=== PATIENT | male | born 1955 | race Caucasian/White ===

== ENCOUNTER 2021-01-03 10:20 | Emergency (ER) | payer MEDICARE, OTHER ==
[~2021-01-03] VITALS: Ht 180.3 cm; Wt 84.0 kg
--- NOTE | 2021-01-03 10:44 | ED Upper Extremity ---
General Chief Complaint: Upper Extremity Stated Complaint: RT THUMB NUMBNESS Source: patient History of Present Illness Date Seen by Provider: Jan 03, 2021 Time Seen by Provider: 10:22 Initial Comments 65 yo male presenting with right thumb weakness since last night 01/01. He states that he is right-hand dominant. He has had trouble trying to hold onto things and grasps things with his right hand due to thumb weakness since last night. He denies any new injury or fall but did have continued shoulder pain on the right since having a fall directly on the shoulder 6 weeks ago while playing pickle ball. He denies any numbness or tingling. He has increased pain with lifting his arm. He denies any prior problems with his arm or hand. He denies any other symptoms of vision change, numbness or weakness in any other extremity or area. Allergies and Home Medications Allergies Coded Allergies: No Known Drug Allergies (Unverified , 01/03/21) Patient Home Medication List Home Medication List Reviewed: Yes Review of Systems Constitutional: No chills, No dizziness, No fever EENTM: no symptoms reported Respiratory: no symptoms reported Cardiovascular: no symptoms reported Gastrointestinal: no symptoms reported Genitourinary: no symptoms reported Musculoskeletal: see HPI Skin: no symptoms reported Psychiatric/Neurological: See HPI Past Jmtujhu-Jsjjog-Rrjpjj Hx Past Med/Social Hx: Reviewed Nursing Past Med/Soc Hx Past Medical History Respiratory: No Cardiac: Yes Hypertension Physical Exam Vital Signs Vital Signs - First Documented 01/03/21 10:28 Temp 36.2 Pulse 94 Resp 16 B/P (MAP) 129/98 (108) Pulse Ox 97 O2 Delivery Room Air Capillary Refill : Height, Weight, BMI Height: '" Weight: lbs. oz. kg; BMI Method: General Appearance: WD/WN, no apparent distress HEENT: PERRL/EOMI Neck: non-tender, full range of motion, supple, normal inspection Cardiovascular: normal peripheral pulses, regular rate, rhythm Respiratory: chest non-tender Shoulder: normal ROM; No deformity, No ecchymosis; pain (with abduction past 80 degrees) Elbow/Forearm: normal inspection, non-tender, no evidence of injury, normal ROM Wrist: Yes normal inspection, Yes non-tender, Yes no evidence of injury Hand: no evidence of injury, normal ROM Neurologic/Tendon: normal sensation, normal tendon functions, other (He has mild weakness with moving his right thumb towards his hand/fingers compared to the left side.) Neurologic/Psychiatric: kettle cook II-XII nml as tested, alert, oriented x 3 Skin: normal color, warm/dry Progress/Results/Core Measures Results/Orders My Orders Orders - HARRIETT NAIK MD Shoulder 3 View Right (01/03/21 10:39) Vital Signs/I&O 01/03/21 01/03/21 10:28 11:30 Temp 36.2 36.2 Pulse 94 94 Resp 16 16 B/P (MAP) 129/98 (108) 129/98 (108) Pulse Ox 97 97 O2 Delivery Room Air Progress Progress Note #1: Progress Note Discussed with patient the stroke was unlikely since this was so localized to just his thumb. He could have an issue with the rotator cuff for brachial plexus on his right arm since he was having shoulder issues. He denies any recent injury but with the pain and injury still from 6 weeks ago he was concerned about a fracture in his shoulder. I advised him that a CT of his head would help look from a neurologic standpoint as well as we could look for bony injury of the shoulder but ultimately an MRI would be the way to look at the soft tissues of the shoulder and the nerves. As an MRI is not available here and it is a localized if nothing shows on the initial test he would have to go to a larger facility. Patient wanted to just have x-rays to look for any fracture. He would decide from there for any further testing or treatment. Progress Note #2: Progress Note The x-rays did not show any acute fracture or dislocation. He has some mild degenerative changes. Discussed results with the patient and again reviewed that an MRI or seeing orthopedics would be the next step. Also counseled that could try using NSAIDs or steroids to see if that would help. Patient opted to try taking NSAIDs and alternate ice and heat initially. If symptoms worsen or progress to other areas will return or seek care to look for an MRI for rotator cuff or brachial plexus nerve issue. Diagnostic Imaging Diagonstic Imaging: Xray Plain Films/CT/US/NM/MRI: other (right shoulder) Comments NAME: INDIGONORMAN REC#: [id number] PT STATUS: REG ER : 1955 PHYSICIAN: HARRIETT NAIK MD ADMIT DATE: 01/03/21/ER FS Draft Date of Exam:01/03/21 SHOULDER 3 VIEW RIGHT HISTORY: Pain in the right shoulder after fall 6 weeks ago COMPARISON: None TECHNIQUE: 3 views of the right shoulder FINDINGS: No acute fracture or dislocation is seen in the right shoulder. Alignment appears normal. There are moderate degenerative changes in the right acromioclavicular joint and mild in the glenohumeral joint. IMPRESSION: 1. Degenerative changes in the right shoulder with no acute osseous abnormality seen. Dictated on workstation # [id number] Dict: 01/03/21 1103 Trans: 01/03/21 [facility]6 [place] [id number] Interpreted by: JILLIAN CHAMBERS MD Electronically signed by: Reviewed: Reviewed by Me (and radiology report) Departure Impression Primary Impression: Thumb weakness Additional Impressions: Right shoulder strain Qualified Codes: S46.911A - Strain of unspecified muscle, fascia and tendon at shoulder and upper arm level, right arm, initial encounter Right shoulder pain Qualified Codes: M25.511 - Pain in right shoulder; G89.29 - Other chronic pain Disposition: 01 HOME, SELF-CARE Condition: Stable Departure-Patient Inst. Decision time for Depature: 11:23 Referrals: NO,LOCAL PHYSICIAN (PCP) Primary Care Physician KYLE FALK MD, MICHAEL P MD [facility] Patient Instructions: Shoulder Pain ED, Weakness ED Add. Discharge Instructions: Try using Aleve (Naproxen) for inflammation and pain. If having worsening weakness/pain then get checked sooner or if not improving over next few days then check with [facility] by calling [phone] or call the Orthopedics clinic for follow up. Dr. Aj and Nurse Practitioner Leonel Morales could be scheduled by calling [phone] All discharge instructions reviewed with patient and/or family. Voiced understanding. HARRIETT NAIK MD Jan 03, 2021 10:44
[2021-01-03] MEDS ORDERED: OLMESARTAN (10:56)
--- NOTE | 2021-01-03 11:06 | Diagnostic Imaging Report ---
HISTORY: Pain in the right shoulder after fall 6 weeks ago COMPARISON: None TECHNIQUE: 3 views of the right shoulder FINDINGS: No acute fracture or dislocation is seen in the right shoulder. Alignment appears normal. There are moderate degenerative changes in the right acromioclavicular joint and mild in the glenohumeral joint. IMPRESSION: 1. Degenerative changes in the right shoulder with no acute osseous abnormality seen. Dictated by: Dictated on workstation # [id number]
[2021-01-03 11:30] VITALS: BP 129/98
== END 2021-01-03 11:30 | disposition home or self-care (01) ==
LOC: ER FS 10:27
DX: S46.911A Strain of unspecified muscle, fascia and tendon at shoulder and upper arm level, right arm, initial encounter (principal); R53.1 Weakness; I10 Essential (primary) hypertension; W09.8XXA Fall on or from other playground equipment, initial encounter; Y93.73 Activity, racquet and hand sports
CPT/HCPCS: 73030

== ENCOUNTER 2021-01-20 21:48 | Observation (INO) | payer MEDICARE ==
[~2021-01-20] VITALS: Ht 185.5 cm; Wt 86.9 kg
[~2021-01-20 21:48] MED LIST: OLMESARTAN
--- NOTE | 2021-01-20 22:06 | ED Neurological Problem ---
General Stated Complaint: RIGHT SIDE WEAKNESS Source: patient Exam Limitations: no limitations History of Present Illness Date Seen by Provider: January 20, 2021 Time Seen by Provider: 21:51 Initial Comments Patient to the ER by private conveyance with his significant other and chief complaint that he has right-sided weakness, difficulty speaking, right upper and lower extremity weakness and facial droop. He woke up with this at noon. Last known well time was 11:00 last night when he went to bed. 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 He has a strong family history of stroke. He is not diabetic. Several weeks ago he fell and had a accident while playing pickle ball with outstretched right arm and has had some pain and pinched nerve in his right arm and shoulder. Allergies and Home Medications Allergies Coded Allergies: No Known Drug Allergies (Unverified , 01/03/21) Patient Home Medication List Home Medication List Reviewed: Yes Review of Systems Review of Systems Constitutional: No chills, No diaphoresis, No fever Eyes: Denies Blindness, Denies Blurred Vision, Denies Drainage Ears, Nose, Mouth, Throat: denies ear pain, denies ear discharge Respiratory: No cough, No short of breath Cardiovascular: No edema, No palpitations Gastrointestinal: No abdominal pain, No nausea Genitourinary: No discharge, No dysuria Musculoskeletal: No back pain, No joint pain Psychiatric/Neurological: See HPI All Other Systems Reviewed Negative Unless Noted: Yes Past Heiozht-Oyvnxa-Gkbkee Hx Patient Social History Alcohol Use: Occasionally Uses Number of Drinks Today: 0 Drug of Choice: Denies Smoking Status: Never a Smoker Recent Hopitalizations: No Seasonal Allergies Seasonal Allergies: No Past Medical History Surgeries: Yes (Exploratory Lap, bilat inguinal hernias) Respiratory: No Cardiac: Yes Hypertension Neurological: No Genitourinary: No Gastrointestinal: No Musculoskeletal: No Endocrine: No HEENT: No Cancer: No Psychosocial: No Integumentary: No Blood Disorders: No Physical Exam Vital Signs Vital Signs - First Documented 01/20/21 21:52 Temp 36.6 Capillary Refill : Height, Weight, BMI Height: '" Weight: lbs. oz. kg; 25.00 BMI Method: General Appearance: WD/WN, mild distress HEENT: PERRL/EOMI, pharynx normal Neck: full range of motion, normal inspection Respiratory: normal breath sounds, no respiratory distress, no accessory muscle use Cardiovascular: normal peripheral pulses, regular rate, rhythm Peripheral Pulses: 2+ Dorsalis Pedis (R), 2+ Left Dors-Pedis (L) Extremities: normal range of motion, non-tender, normal inspection, normal capillary refill Neurologic/Psychiatric: alert, oriented x 3 Crainal Nerves: normal hearing, PERRL, abnormal speech, facial asymmetry, facial droop, facial paresthesias, facial weakness Motor/Sensory: pronator drift (R) (Upper and lower extremity), sensory deficit (Right face and right upper extremity decreased sensation) Skin: normal color, warm/dry Stroke Onset of Symptoms Date of Onset of Symptoms: January 19, 2021 Time of Symptom Onset: 23:00 Onset of Symptoms: Yes Symptoms onset unknown: Yes NIH Stroke Scale Assessment Select: Initial Level of Consciousness: 0=Alert (0), Level of Consciousness- Questions: 0=Answers both month/age (0), LOC Commands: 0=Performs both tasks (0), Gaze: Normal (0), Visual Larson: 0=No visual loss (0), Facial Movement (Facial Paresis): 2=Partial paralysis (2), Motor Function-Arms Right: 1=Drift (1), Motor Function-Arms Left: 0=No drift (0), Motor Function-Legs Right: 1=Drift (1), Motor Function-Legs Left: 0=No drift (0), Limb Ataxia: 0=Absent (0), Sensory: 1=Mild to Moderate loss Face and right upper extremity decreased sensation (1), Best Language: 0=No aphasia (0), Dysarthria: 1=Mild to moderate loss (1), Extinction & Inattention: 0=No abnormality (0), Total: 6 Stroke Thrombolytic Exclusion Age 18 or Over: No Acute intenal hemorrhage: No History of CVA: No Uncontrolled Coagulation Defec: No Intracranial Hemorrhage: No Severe Hypertension: No GI or Bleed: No Subarachnoid Hemorrhage: No Intracranial Neoplasm/Aneurysm: No Oral Anticoagulants: No Surgery or Trauma: No Puncture of Non-Compressible V: No Recent CPR: No Diabetic Hemorrhagic Retinopat: No Organ Biopsy: No Recent Obstetric Delivery: No Glucose: No (Reads high) Significant Hepatic Dysfunctio: No NIH Stoke Scale >22: No Bacterial Endocarditis: No Pericarditis: No Improving Symptoms: No Platelets: No TPA Contraindication: Yes (Outside the window) IV - TPa Received IV - TPa Procedure Performed?: No (Last known well time 23 hours ago.) Progress/Results/Core Measures Results/Orders Lab Results Laboratory Tests Test 01/20/21 21:57 01/20/21 22:15 Range/Units White Blood Count 8.3 4.3-11.0 10^3/uL Red Blood Count 5.65 H 4.30-5.52 10^6/uL Hemoglobin 16.7 13.3-17.7 g/dL Hematocrit 47 40-54 % Mean Corpuscular Volume 84 80-99 fL Mean Corpuscular Hemoglobin 30 25-34 pg Mean Corpuscular Hemoglobin Concent 35 32-36 g/dL Red Cell Distribution Width 12.1 10.0-14.5 % Platelet Count 281 130-400 10^3/uL Mean Platelet Volume 12.1 9.0-12.2 fL Immature Granulocyte % (Auto) 0 % Neutrophils (%) (Auto) 50 42-75 % Lymphocytes (%) (Auto) 40 12-44 % Monocytes (%) (Auto) 6 0-12 % Eosinophils (%) (Auto) 3 0-10 % Basophils (%) (Auto) 1 0-10 % Neutrophils # (Auto) 4.2 1.8-7.8 10^3/uL Lymphocytes # (Auto) 3.3 1.0-4.0 10^3/uL Monocytes # (Auto) 0.5 0.0-1.0 10^3/uL Eosinophils # (Auto) 0.3 0.0-0.3 10^3/uL Basophils # (Auto) 0.1 0.0-0.1 10^3/uL Immature Granulocyte # (Auto) 0.0 0.0-0.1 10^3/uL Prothrombin Time 14.7 12.2-14.7 SEC INR Comment 1.1 0.8-1.4 Activated Partial Thromboplast Time 29 24-35 SEC D-Dimer 0.05 0.00-0.49 UG/ML Sodium Level 130 L 135-145 MMOL/L Potassium Level 3.4 L 3.6-5.0 MMOL/L Chloride Level 86 L 98-107 MMOL/L Carbon Dioxide Level 24 21-32 MMOL/L Anion Gap 20 H 5-14 MMOL/L Blood Urea Nitrogen 12 7-18 MG/DL Creatinine 1.85 H 0.60-1.30 MG/DL Estimat Glomerular Filtration Rate 37 BUN/Creatinine Ratio 6 Glucose Level 653 *H 70-105 MG/DL Calcium Level 9.0 8.5-10.1 MG/DL Corrected Calcium 8.9 8.5-10.1 MG/DL Total Bilirubin 0.8 0.1-1.0 MG/DL Aspartate Amino Transf (AST/SGOT) 17 5-34 U/L Alanine Aminotransferase (ALT/SGPT) 27 0-55 U/L Alkaline Phosphatase 74 40-136 U/L Troponin I < 0.028 <0.028 NG/ML Total Protein 7.8 6.4-8.2 GM/DL Albumin 4.1 3.2-4.5 GM/DL Urine Color YELLOW Urine Clarity CLEAR Urine pH 6.0 5-9 Urine Specific [place] <=1.005 1.016-1.022 Urine Protein NEGATIVE NEGATIVE Urine Glucose (UA) 3+ H NEGATIVE Urine Ketones NEGATIVE NEGATIVE Urine Nitrite NEGATIVE NEGATIVE Urine Bilirubin NEGATIVE NEGATIVE Urine Urobilinogen 1.0 < = 1.0 MG/DL Urine Leukocyte Esterase NEGATIVE NEGATIVE Urine RBC (Auto) NEGATIVE NEGATIVE Urine RBC NONE /HPF Urine WBC RARE /HPF Urine Squamous Epithelial Cells NONE /HPF Urine Renal Epithelial Cells NONE /HPF Urine Crystals NONE /LPF Urine Bacteria NEGATIVE /HPF Urine Casts NONE /LPF Urine Mucus NEGATIVE /LPF Urine Culture Indicated NO My Orders Orders - HENRRY TRIPATHI Cbc With Automated Diff (01/20/21 21:59) Protime With Inr (01/20/21 21:59) Partial Thromboplastin Time (01/20/21 21:59) Comprehensive Metabolic Panel (01/20/21 21:59) Fibrin Degradation Products (01/20/21 21:59) Troponin I (01/20/21 21:59) Ua Culture If Indicated (01/20/21 21:59) Chest 1 View, Ap/Pa Only (01/20/21 21:59) Ekg Tracing (01/20/21 21:59) Nothing By Mouth (01/21/21 Breakfast) Accucheck Stat ONCE (01/20/21 21:59) Ed Iv/Invasive Line Start (01/20/21 21:59) Ed Iv/Invasive Line Start (01/20/21 21:59) Vital Signs Stroke Patient Q15M (01/20/21 21:59) O2 (01/20/21 21:59) Intake & Output 06,14,22 (01/20/21 21:59) Monitor-Rhythm Ecg Trace Only (01/20/21 21:59) Dysphagia Screening Tool (01/20/21 21:59) Lipid Panel (01/21/21 06:00) Ct Angio Head/Neck (01/20/21 21:59) Ed Iv/Invasive Line Start (01/20/21 22:45) Ns Iv 1000 Ml (Sodium Chloride 0.9%) (01/20/21 22:45) Iohexol Injection (Omnipaque 350 Mg/Ml 1 (01/20/21 23:00) Received Contrast (Hold Metformin- Contr (01/20/21 23:00) Ns (Ivpb) (Sodium Chloride 0.9% Ivpb Bag (01/20/21 23:00) Potassium Cl 10meq/50ml Ivpb (Kcl 10 Meq (01/20/21 23:15) Insulin (Regular) Human (Novolin R (Per (01/20/21 23:15) Medications Given in ED Current Medications Medications Dose Ordered Sig/Roger Route Start Time Stop Time Status Last Admin Dose Admin Insulin Human Regular 5 unit ONCE ONCE SC 01/20/21 23:15 01/20/21 23:16 DC 01/20/21 23:20 5 UNIT Iohexol 75 ml ONCE ONCE IV 01/20/21 23:00 01/20/21 23:01 DC 01/20/21 22:52 75 ML Potassium Chloride 50 ml @ 50 mls/hr ONCE ONCE IV 01/20/21 23:15 01/21/21 00:14 DC 01/20/21 23:20 50 MLS/HR Sodium Chloride 100 ml ONCE ONCE IV 01/20/21 23:00 01/20/21 23:01 DC 01/20/21 22:52 80 ML Vital Signs/I&O 01/20/21 21:52 Temp 36.6 B/P (MAP) Progress Progress Note #1: Time: 22:02 Progress Note Outside the window for TPA. Plan to get CT angiogram and CT of the head. Bedside glucometer reads high. Progress Note #2: Time: 23:47 Progress Note Repeat NIH 6, unchanged. 2 L of saline of been ordered as well as potassium and 5 units of regular insulin. Progress Note #3: Time: 00:53 Progress Note Patient is having some difficulty controlling his right arm having some jerking movement which we suspect is related to the hyperglycemia. He takes alprazolam 1 mg daily at night. We have suggested some Ativan half a milligram IV and he accepted this plan. Initial ECG Impression Date: January 20, 2021 Initial ECG Impression Time: 22:04 Initial ECG Rate: 94 Initial ECG Rhythm: Normal Sinus Initial ECG Intervals: QT (506) Initial ECG Impression: Normal Initial ECG Comparisson: No Previous ECG Available Comment sinus Rhythm with prolonged QT interval and no clinically relevant ST changes. Diagnostic Imaging Diagonstic Imaging: Xray Plain Films/CT/US/NM/MRI: chest Comments No acute cardiopulmonary process on 1 view chest x-ray Reviewed: Reviewed by Me Diagonstic Imaging: CT Plain Films/CT/US/NM/MRI: head Comments No intracranial hemorrhage, evidence of large territorial infarction. Mild parenchymal volume loss with chronic microvascular ischemic changes. No large vessel occlusion, aneurysm or hemodynamically significant stenosis Reviewed: Reviewed [place] Study, Reviewed by Me Diagonstic Imaging: CT Plain Films/CT/US/NM/MRI: head (Head and neck) Comments No dissection, pseudoaneurysm or hemodynamically significant stenosis of the carotid or vertebral arteries. Mild esophageal wall thickening. This could be seen with esophagitis in the appropriate clinical scenario. Reviewed: Reviewed [place] Study, Reviewed by Me Consults : Consults Notes Dr Lazaro: Stroke neurologist on-call at [facility] recommends we should consider stroke versus hyperglycemia. We should admit him, address the hyperglycemia and consider getting MRI in the morning. She recommends antiplatelets and IV fluids. Blood pressure is down now to 103/71 so we will start a second liter of fluids. Departure Impression Primary Impression: Hyperglycemia Additional Impression: Acute right-sided weakness Disposition: ADMITTED INPATIENT Condition: Stable Admissions Decision to Admit Reason: Admit from ER (General) Decision to Admit/Date: January 20, 2021 Time/Decision to Admit Time: 23:10 Departure-Patient Inst. Referrals: NO,LOCAL PHYSICIAN (PCP/Family) Primary Care Physician HENRRY TRIPATHI January 20, 2021 22:06
[2021-01-20 22:14] LABS: BASOPHILS # (AUTO) 0.1 10^3/uL (0.0-0.1); BASOPHILS % (AUTO) 1 % (0-10); EOSINOPHILS # (AUTO) 0.3 10^3/uL (0.0-0.3); EOSINOPHILS % (AUTO) 3 % (0-10); HEMATOCRIT 47 % (40-54); HEMOGLOBIN 16.7 g/dL (13.3-17.7); LYMPHOCYTES # (AUTO) 3.3 10^3/uL (1.0-4.0); LYMPHOCYTES % (AUTO) 40 % (12-44); MEAN CORPUSCULAR HEMOGLOBIN 30 pg (25-34); MEAN CORPUSCULAR HGB CONC 35 g/dL (32-36); MEAN CORPUSCULAR VOLUME 84 fL (80-99); MEAN PLATELET VOLUME 12.1 fL (9.0-12.2); MONOCYTES # (AUTO) 0.5 10^3/uL (0.0-1.0); MONOCYTES % (AUTO) 6 % (0-12); NEUTROPHILS # (AUTO) 4.2 10^3/uL (1.8-7.8); NEUTROPHILS % (AUTO) 50 % (42-75); PLATELET COUNT 281 10^3/uL (130-400); WHITE BLOOD COUNT 8.3 10^3/uL (4.3-11.0)
[2021-01-20 22:22] LABS: BILIRUBIN,URINE NEGATIVE (NEGATIVE); CLARITY,URINE CLEAR; COLOR,URINE YELLOW; GLUCOSE, URINE (UA) 3+ (NEGATIVE); KETONES,URINE NEGATIVE (NEGATIVE); LEUKOCYTE ESTERASE ,URINE NEGATIVE (NEGATIVE); NITRITE,URINE NEGATIVE (NEGATIVE); PROTEIN,URINE NEGATIVE (NEGATIVE)
[2021-01-20 22:25] LABS: ALBUMIN 4.1 GM/DL (3.2-4.5); CHLORIDE 86 MMOL/L (98-107); POTASSIUM 3.4 MMOL/L (3.6-5.0); SODIUM 130 MMOL/L (135-145)
[2021-01-20 22:28] LABS: TOTAL PROTEIN 7.8 GM/DL (6.4-8.2)
[2021-01-20 22:29] LABS: BACTERIA,URINE NEGATIVE /HPF; WBC,URINE RARE /HPF
[2021-01-20 22:29] LABS: CARBON DIOXIDE 24 MMOL/L (21-32)
[2021-01-20 22:30] LABS: BILIRUBIN,TOTAL 0.8 MG/DL (0.1-1.0)
[2021-01-20 22:31] LABS: ALKALINE PHOSPHATASE 74 U/L (40-136); CREATININE SERUM 1.85 MG/DL (0.60-1.30); GFR ESTIMATED 37
[2021-01-20 22:32] LABS: BUN/CREATININE RATIO 6
[2021-01-20 22:34] LABS: ALANINE AMINOTRANSFERASE 27 U/L (0-55); FIBRIN DEGRADATION PRODUCTS 0.05 UG/ML (0.00-0.49); GLUCOSE 653 MG/DL (70-105); INR 1.1 (0.8-1.4); PROTHROMBIN TIME PATIENT 14.7 SEC (12.2-14.7)
[2021-01-20] MEDS ORDERED: NS IV 1000 ML 1,000 ML IV SCH (22:45)
[2021-01-20] MEDS ORDERED: IOHEXOL 350 MG/ML 100 ML (OMNIPAQUE 350) VIAL IV ONE (23:00)
[2021-01-20] MEDS ORDERED: HOLD METFORMIN - RECEIVED CONTRAST 20 ML VIAL IV SCH (23:00)
[2021-01-20] MEDS ORDERED: NS 100 ML (IVPB) BAG IV ONE (23:00)
[2021-01-20] MEDS ORDERED: POTASSIUM CL 10MEQ/50ML IVPB 50 ML IV ONE (23:15)
[2021-01-20] MEDS ORDERED: inSUlin (REGULAR) HUMAN 1 UNIT/0.01 ML (CHARGE PER UNIT) SC ONE (23:15)
[2021-01-21] MEDS ORDERED: LORazepam INJ 2 MG/ML (ATIVAN) VIAL ONE (00:47)
[2021-01-21 00:59] VITALS: BP 78/58
[2021-01-21] MEDS ORDERED: LORazepam INJ 2 MG/ML (ATIVAN) VIAL IVP ONE (01:00)
[2021-01-21] MEDS ORDERED: 1/2 NS IV SOLUTION 1,000 ML IV ONE (01:19)
[2021-01-21] MEDS ORDERED: ACETAMINOPHEN 325 MG TABLET PO PRN (02:00)
[2021-01-21] MEDS: POTASSIUM CL 10MEQ/50ML IVPB 50 ML IV SCH ×8 (02:00→23:32)
[2021-01-21] MEDS: 1/2 NS IV SOLUTION 1,000 ML IV SCH ×6 (02:00→22:09)
[2021-01-21 03:31] LABS: BASOPHILS # (AUTO) 0.1 10^3/uL (0.0-0.1); BASOPHILS % (AUTO) 1 % (0-10); EOSINOPHILS # (AUTO) 0.3 10^3/uL (0.0-0.3); EOSINOPHILS % (AUTO) 4 % (0-10); HEMATOCRIT 45 % (40-54); LYMPHOCYTES # (AUTO) 2.8 10^3/uL (1.0-4.0); LYMPHOCYTES % (AUTO) 40 % (12-44); MEAN CORPUSCULAR HEMOGLOBIN 30 pg (25-34); MEAN CORPUSCULAR HGB CONC 36 g/dL (32-36); MEAN CORPUSCULAR VOLUME 84 fL (80-99); MEAN PLATELET VOLUME 11.8 fL (9.0-12.2); MONOCYTES # (AUTO) 0.4 10^3/uL (0.0-1.0); MONOCYTES % (AUTO) 6 % (0-12); NEUTROPHILS # (AUTO) 3.5 10^3/uL (1.8-7.8); NEUTROPHILS % (AUTO) 50 % (42-75); PLATELET COUNT 221 10^3/uL (130-400)
[2021-01-21 03:45] LABS: POTASSIUM 3.1 MMOL/L (3.6-5.0)
[2021-01-21 03:47] LABS: CALCIUM 8.4 MG/DL (8.5-10.1)
[2021-01-21 03:51] LABS: PHOSPHORUS 2.4 MG/DL (2.3-4.7)
[2021-01-21 03:52] LABS: CREATININE SERUM 1.36 MG/DL (0.60-1.30)
[2021-01-21 03:54] LABS: MAGNESIUM 2.1 MG/DL (1.6-2.4)
[2021-01-21] MEDS: D5 1/2 NS 1000 ML IV SOLUTION 1,000 ML IV SCH ×5 (04:02→21:14)
[2021-01-21] MEDS ORDERED: KCL 20 MEQ TAB (K-DUR) PO SCH ×2 (06:00)
[2021-01-21] MEDS ORDERED: POTASSIUM CL 10MEQ/50ML IVPB 50 ML IV SCH ×2 (06:00)
[2021-01-21] MEDS ORDERED: MAGNESIUM 1 GM/100 ML IVPB 100 ML IV SCH ×2 (06:00)
--- NOTE | 2021-01-21 06:15 | Diagnostic Imaging Report ---
EXAMINATION: Chest 1 view HISTORY: Right-sided weakness. Concern for stroke. COMPARISON: None available. FINDINGS: The lung volumes are normal. No focal consolidation is seen. No large pleural effusion or pneumothorax is seen. The cardiomediastinal silhouette is normal in size and contour. No acute osseous abnormality is seen. IMPRESSION: 1. No acute pleuroparenchymal process. Dictated by: Dictated on workstation # [id number]
--- NOTE | 2021-01-21 06:45 | Diagnostic Imaging Report ---
PROCEDURE: CT angiography of the head and CT angiography of the neck with and without contrast. TECHNIQUE: Contiguous noncontrast images were obtained from the skull base through the vertex. After intravenous contrast administration, helical CT angiography of the neck was performed. Source data was reformatted into 3D MIP projections. Delayed post contrast acquisition was also obtained. Auto Exposure Controls were utilized during the CT exam to meet ALARA standards for radiation dose reduction. INDICATION: Right-sided weakness. Concern for stroke. Comparison: None. FINDINGS: CTA Neck: The visualized portions of the aortic arch demonstrate no evidence of aneurysm or dissection. There is conventional branching pattern of the great vessels of the aorta. The brachiocephalic artery is normal in course and caliber. The right and left common carotid origins are unremarkable. The origin of the left subclavian artery is patent. The common carotid arteries and internal carotid arteries demonstrate a normal course and caliber without evidence of stenosis or dissection. The external carotid arteries are patent and unremarkable. The vertebral arteries are codominant. The origin of the right vertebral artery is seen and is unremarkable. The origin of the left vertebral artery is seen and is unremarkable. There is no focal stenosis seen within the neck. There is no dissection. The vertebral arteries are well visualized to up to the level of the basilar artery. The osseous structures of the cervical spine are unremarkable. Included views through the lung apices demonstrate no focal consolidation. CTA brain: The intracranial portions of the bilateral ICA have a normal appearance without evidence of stenosis or aneurysm. No stenosis is seen in the bilateral anterior, middle, and posterior cerebral arteries. No evidence of aneurysm the [place]. In the posterior circulation, both of the vertebral arteries demonstrate normal opacification. The vertebral arteries are codominant. Both the right and left PICA arteries are identified. The basilar artery is normal in course and caliber. The terminal branch vessels including the superior cerebellar arteries unremarkable. CT head: No large acute territorial ischemia, mass, or hemorrhage. No midline shift or mass effect. The ventricles, cortical sulci, and basilar cisterns are patent and unremarkable. The calvarium is intact. Mild mucosal thickening is seen in the bilateral maxillary sinuses. The mastoid air cells are clear. IMPRESSION: 1. No stenosis or aneurysm in the [place]. No evidence of large vessel occlusion. 2. No stenosis or dissection the bilateral carotid and vertebral arteries. 3. No large acute territorial ischemia, mass, or hemorrhage. If symptoms persist, recommend MRI of the brain to further evaluate. Agree with overnight report. Dictated by: Dictated on workstation # [id number]
[2021-01-21] MEDS: DOCUSATE SODIUM 100 MG (COLACE) CAP PO SCH ×2 (08:17→20:03)
[2021-01-21] MEDS: ASPIRIN E.C. 325 MG (ECOTRIN) TABLET PO SCH (08:17)
--- NOTE | 2021-01-21 09:10 | History & Physical-Hospitalist ---
History of Present Illness HPI/Chief Complaint Pt is a 65yoCM with a PMH of HIV and HTN who presented to the ER due to right sided weakness. His last known well was 11pm last night and he awoke with this symptoms. He fell playing pickleball a couple of months ago and has had some right arm pain since so thought it was that but he also developed slurred speech and right lower extremity weakness. His NIH was [address] head was negative for ICH and CTA was then done which showed no large vessel occlusions. [facility] stroke neurology was consulted and recommended MRI and DAPT. He was admitted for further work up. This morning he reports feeling better. Speech is better and he has no lower extremity weakness. His right arm is still quite weak and he complains of paresthesias in it with occasional spasticity. He has no known history of DM but his blood sugar was 653 on arrival. He also reports his CD4 count was in the 800s on last check and his viral load was undetectable. Source: patient Date Seen 01/21/21 Time Seen by a Provider: 08:30 Attending Physician Violeta Griffin MD PCP No,Local Physician Referring Physician Date of Admission January 20, 2021 at 23:30 Home Medications & Allergies Home Medications Reviewed patient Home Medication Reconciliation performed by pharmacy medication reconciliations inorganic chemical technician and/or nursing. Patients Allergies have been reviewed. Allergies Allergies Coded Allergies No Known Drug Allergies (Unverified01/03/21) Patient Social History Marrital Status: single Tobacco Use?: No Smoking Status: Never a Smoker Substance use?: No Alcohol Use?: No Pt stated abuse/neglect: No Immunizations Up To Date Influenza Vaccine Up-to-Date: Yes; Up-to-Date First/Initial COVID19 Vaccinat: 01/03 Second COVID19 Vaccination [place]: 01/03 Current Status Do you have an Advance Directi: No Communicates: Verbally Primary Language: Malaysian Preferred Spoken Language: Malaysian Is interpretation needed?: No Past Medical History HIV positive, HTN Family Medical History Family Hx: Stroke, Heart disease Review of Systems Constitutional: No chills, No fever EENTM: no symptoms reported Respiratory: No cough, No orthopnea, No short of breath Cardiovascular: No chest pain, No edema, No palpitations Gastrointestinal: No abdominal pain, No constipation, No diarrhea, No nausea, No vomiting Genitourinary: no symptoms reported Musculoskeletal: see HPI Skin: no symptoms reported Psychiatric/Neurological: See HPI Physical Exam Physical Exam Vital Signs Vital Signs - First Documented 01/20/21 01/21/21 01/21/21 21:52 00:59 01:09 Temp 36.6 Pulse 76 Resp 20 B/P (MAP) 78/58 Pulse Ox 95 O2 Delivery Room Air Capillary Refill : Less Than 3 Seconds Height, Weight, BMI Height: '" Weight: lbs. oz. kg; 23.53 BMI Method: General Appearance: No Apparent Distress, WD/WN HEENT: PERRL/EOMI, Moist Mucous Membranes Neck: Normal Inspection, Supple Respiratory: Lungs Clear, No Accessory Muscle Use, No Respiratory Distress Cardiovascular: Regular Rate, Rhythm, No JVD, No Murmur Gastrointestinal: Normal Bowel Sounds, Non Tender, Soft Extremity: Normal Capillary Refill, No Calf Tenderness, No Pedal Edema Neurologic/Psychiatric: Alert, Oriented x3, Normal Mood/Affect; No Aphasia, No Facial Droop; Motor Weakness (right upper extremity hemstitcher strength 2/5, sensation intact, all other extremities 5/5); No Sensory Deficit Results Results/Procedures Labs Laboratory Tests 01/20/21 21:57 01/21/21 03:07 01/21/21 08:44 Patient resulted labs reviewed. Imaging: Reviewed Imaging Report Imaging [facility], [place] NAME: NORMAN SOOD [facility] REC#: [id number] PT STATUS: ADM Rajni : 1955 PHYSICIAN: HENRRY TRIPATHI MD ADMIT DATE: 01/20/21/ICU Signed Date of Exam:01/20/21 CT ANGIO HEAD/NECK PROCEDURE: CT angiography of the head and CT angiography of the neck with and without contrast. TECHNIQUE: Contiguous noncontrast images were obtained from the skull base through the vertex. After intravenous contrast administration, helical CT angiography of the neck was performed. Source data was reformatted into 3D MIP projections. Delayed post contrast acquisition was also obtained. Auto Exposure Controls were utilized during the CT exam to meet ALARA standards for radiation dose reduction. INDICATION: Right-sided weakness. Concern for stroke. Comparison: None. FINDINGS: CTA Neck: The visualized portions of the aortic arch demonstrate no evidence of aneurysm or dissection. There is conventional branching pattern of the great vessels of the aorta. The brachiocephalic artery is normal in course and caliber. The right and left common carotid origins are unremarkable. The origin of the left subclavian artery is patent. The common carotid arteries and internal carotid arteries demonstrate a normal course and caliber without evidence of stenosis or dissection. The external carotid arteries are patent and unremarkable. The vertebral arteries are codominant. The origin of the right vertebral artery is seen and is unremarkable. The origin of the left vertebral artery is seen and is unremarkable. There is no focal stenosis seen within the neck. There is no dissection. The vertebral arteries are well visualized to up to the level of the basilar artery. The osseous structures of the cervical spine are unremarkable. Included views through the lung apices demonstrate no focal consolidation. CTA brain: The intracranial portions of the bilateral ICA have a normal appearance without evidence of stenosis or aneurysm. No stenosis is seen in the bilateral anterior, middle, and posterior cerebral arteries. No evidence of aneurysm the [place]. In the posterior circulation, both of the vertebral arteries demonstrate normal opacification. The vertebral arteries are codominant. Both the right and left PICA arteries are identified. The basilar artery is normal in course and caliber. The terminal branch vessels including the superior cerebellar arteries unremarkable. CT head: No large acute territorial ischemia, mass, or hemorrhage. No midline shift or mass effect. The ventricles, cortical sulci, and basilar cisterns are patent and unremarkable. The calvarium is intact. Mild mucosal thickening is seen in the bilateral maxillary sinuses. The mastoid air cells are clear. IMPRESSION: 1. No stenosis or aneurysm in the [place]. No evidence of large vessel occlusion. 2. No stenosis or dissection the bilateral carotid and vertebral arteries. 3. No large acute territorial ischemia, mass, or hemorrhage. If symptoms persist, recommend MRI of the brain to further evaluate. Agree with overnight report. Dictated by: Dictated on workstation # [id number] Dict: 01/21/2138 Trans: 01/21/21648 CV [id number] Interpreted by: FLORINDA MACEDO DO Electronically signed by: FLORINDA MACEDO DO 01/21/21648 [facility], [place] NAME: NOR[facility] SOOD [facility] REC#: [id number] PT STATUS: ADM Rajni : 1955 PHYSICIAN: HENRRY TRIPATHI MD ADMIT DATE: 01/20/21/ICU Signed Date of Exam:01/20/21 CHEST 1 VIEW, AP/PA ONLY EXAMINATION: Chest 1 view HISTORY: Right-sided weakness. Concern for stroke. COMPARISON: None available. FINDINGS: The lung volumes are normal. No focal consolidation is seen. No large pleural effusion or pneumothorax is seen. The cardiomediastinal silhouette is normal in size and contour. No acute osseous abnormality is seen. IMPRESSION: 1. No acute pleuroparenchymal process. Dictated by: Dictated on workstation # [id number] Dict: 01/21/21612 Trans: 01/21/21616 CARMEN [id number] Interpreted by: FLORINDA MACEDO DO Electronically signed by: FLORINDA MACEDO DO 01/21/21 0617 Assessment/Plan Admission Diagnosis Stroke like symptoms Admission Status: Inpatient Order (span 2 midnights) Reason for Inpatient Admission: see below Assessment and Plan Stroke like symptoms Right sided weakness Outside of window for TPA on arrival PT/OT Continue ASA, statin Monitor on telemetry Echo ordered MRI in AM Consider IRU given spasticity in arm and high likelihood for physician oversight with rehab, pt is also right handed so suffering significant new debility with right arm impact Newly diagnosed Type II DM BS 653 on arrival Currently on insulin gtt Will get a1c Hopeful to titrate off this afternoon to bolus insulin HTN Normally has high Bp Hold home meds for hypotension Echo ordered HIV+ Reports good control on home regimen Resume anti retrovirals when med rec done CD4 and viral load ordered as he is due for it DVT ppx: Lovenox Clinical Quality Measures Stroke: Date of last known well: January 20, 2021 Time of last known well: 23:00 Symptoms onset unknown: Yes VIOLETA GRIFFIN MD January 21, 2021 09:10
[2021-01-21 09:16] LABS: BUN/CREATININE RATIO 9; CALCIUM 7.7 MG/DL (8.5-10.1); CARBON DIOXIDE 28 MMOL/L (21-32); CHLORIDE 96 MMOL/L (98-107); CREATININE SERUM 1.16 MG/DL (0.60-1.30); GFR ESTIMATED > 60; GLUCOSE 200 MG/DL (70-105); POTASSIUM 3.2 MMOL/L (3.6-5.0); SODIUM 135 MMOL/L (135-145)
[2021-01-21] MEDS ORDERED: DARU1TAB PO (09:29)
[2021-01-21] MEDS ORDERED: DOLU10TA PO (09:30)
[2021-01-21 15:08] LABS: CALCIUM 7.5 MG/DL (8.5-10.1); CREATININE SERUM 1.4 MG/DL (0.60-1.30)
[2021-01-21] MEDS: KCL 20 MEQ TAB (K-DUR) PO SCH ×3 (16:09→20:03)
[2021-01-22 01:04] LABS: CREATININE SERUM 1.22 MG/DL (0.60-1.30)
[2021-01-22] MEDS: D5 1/2 NS 1000 ML IV SOLUTION 1,000 ML IV SCH (01:18)
[2021-01-22] MEDS: 1/2 NS IV SOLUTION 1,000 ML IV SCH (02:46)
[2021-01-22 03:09] LABS: BASOPHILS # (AUTO) 0.1 10^3/uL (0.0-0.1); BASOPHILS % (AUTO) 1 % (0-10); EOSINOPHILS # (AUTO) 0.3 10^3/uL (0.0-0.3); EOSINOPHILS % (AUTO) 5 % (0-10); HEMATOCRIT 41 % (40-54); HEMOGLOBIN 14.1 g/dL (13.3-17.7); LYMPHOCYTES # (AUTO) 2.4 10^3/uL (1.0-4.0); LYMPHOCYTES % (AUTO) 38 % (12-44); MEAN CORPUSCULAR HEMOGLOBIN 30 pg (25-34); MEAN CORPUSCULAR HGB CONC 35 g/dL (32-36); MEAN CORPUSCULAR VOLUME 86 fL (80-99); MEAN PLATELET VOLUME 11.7 fL (9.0-12.2); MONOCYTES # (AUTO) 0.4 10^3/uL (0.0-1.0); MONOCYTES % (AUTO) 6 % (0-12); NEUTROPHILS # (AUTO) 3.2 10^3/uL (1.8-7.8); NEUTROPHILS % (AUTO) 50 % (42-75); PLATELET COUNT 182 10^3/uL (130-400); WHITE BLOOD COUNT 6.5 10^3/uL (4.3-11.0)
[2021-01-22 03:16] LABS: CHLORIDE 106 MMOL/L (98-107); POTASSIUM 4.3 MMOL/L (3.6-5.0); SODIUM 135 MMOL/L (135-145)
[2021-01-22 03:17] LABS: CALCIUM 7.9 MG/DL (8.5-10.1)
[2021-01-22 03:18] LABS: GLUCOSE 101 MG/DL (70-105)
[2021-01-22 03:20] LABS: CARBON DIOXIDE 20 MMOL/L (21-32)
[2021-01-22 03:22] LABS: GFR ESTIMATED > 60; PHOSPHORUS 1.5 MG/DL (2.3-4.7)
[2021-01-22 03:23] LABS: BUN/CREATININE RATIO 9
[2021-01-22 03:24] LABS: MAGNESIUM 1.8 MG/DL (1.6-2.4)
--- NOTE | 2021-01-22 04:58 | Pulmonary Consultation ---
History of Present Illness History of Present Illness Date Seen by Provider: January 22, 2021 Time Seen by Provider: 04:48 Date of Admission Allergies and Home Medications Allergies Coded Allergies: No Known Drug Allergies (Unverified , 01/03/21) Home Medications Darunavir/Cobicistat 1 Each Tablet, 1 EACH PO DAILY Prescribed by: OLIMPIA MORIN on 01/21/21928 Dolutegravir Sodium 10 Mg Tablet, 10 MG PO DAILY Prescribed by: OLIMPIA MORIN on 01/21/21929 Past Estczjt-Zsdvbj-Bzpwfv Hx Patient Social History Alcohol Use: Occasionally Uses Number of Drinks Today: 0 Drug of Choice: Denies Smoking Status: Never a Smoker 2nd Hand Smoke Exposure: No Recent Infectious Disease Expo: No Recent Hopitalizations: No Have you traveled recently?: No Alcohol Use?: No Immunizations Up To Date Tetanus Booster (TDap): Unknown Date of Influenza Vaccine: Jun 23, 2020 Seasonal Allergies Seasonal Allergies: No Past Medical History Surgeries: Yes (Exploratory Lap, bilat inguinal hernias) Respiratory: No Cardiac: Yes Hypertension Neurological: No Genitourinary: No Gastrointestinal: No Musculoskeletal: No Endocrine: No HEENT: No Cancer: No Psychosocial: No Integumentary: No Blood Disorders: No Family Medical History Stroke, Heart disease Review of Systems Time Seen by Provider: 04:53 Sepsis Event Evaluation Height, Weight, BMI Height: '" Weight: lbs. oz. kg; 23.53 BMI Method: Exam Exam Vital Signs Date Time Temp Pulse Resp B/P (MAP) Pulse Ox O2 Delivery O2 Flow Rate FiO2 01/22/21 01:00 80 10 107/73 (84) 98 Room Air 01/22/21 01:00 36.8 01/22/21 01:00 80 01/22/21 00:03 78 13 83/57 (66) 96 Room Air 01/22/21 00:00 97 Room Air 01/21/21 23:00 78 13 95/67 (76) 96 Room Air 01/21/21 22:00 80 19 102/84 (90) 98 Room Air 01/21/21 21:00 74 9 96/68 (77) Room Air 01/21/21 20:27 36.7 01/21/21 20:00 78 98/68 (78) 96 Room Air 01/21/21 20:00 97 Room Air 01/21/21 19:00 80 01/21/21 19:00 80 13 85/61 (68) 98 Room Air 01/21/21 18:00 84 11 100/70 (80) 97 Room Air 01/21/21 17:00 73 12 81/59 (66) 95 Room Air 01/21/21 16:19 36.4 01/21/21 16:13 97 Room Air 01/21/21 16:00 72 11 84/58 (67) 96 Room Air 01/21/21 15:00 72 11 88/58 (68) 96 Room Air 01/21/21 14:00 73 12 97 Room Air 01/21/21 13:00 74 19 98/78 (85) 98 Room Air 01/21/21 12:34 68 01/21/21 12:00 97 Room Air 01/21/21 12:00 69 10 98/62 (74) 96 Room Air 01/21/21 12:00 36.4 01/21/21 11:00 66 11 80/60 (67) 96 Room Air 01/21/21 10:00 65 13 81/59 (66) 96 Room Air 01/21/21 09:00 74 11 91/74 (80) 96 Room Air 01/21/21 08:51 96 Room Air 01/21/21 08:00 78 7 80/62 (68) 95 Room Air 01/21/21 07:50 97 Room Air 01/21/21 07:45 36.2 01/21/21 07:00 64 8 80/57 (65) 95 Room Air 01/21/21 07:00 65 01/21/21 06:00 65 7 74/59 (64) 96 Room Air 01/21/21 05:00 71 17 83/59 (67) 95 Room Air I & O 01/22/21 07:00 Intake Total 6840 ml Output Total 2725 ml Balance 4115 ml Height & Weight Height: '" Weight: lbs. oz. kg; 23.53 BMI Method: General Appearance: No Apparent Distress, WD/WN HEENT: PERRL/EOMI, Moist Mucous Membranes Neck: Normal Inspection, Supple Respiratory: Lungs Clear, No Accessory Muscle Use, No Respiratory Distress Cardiovascular: Regular Rate, Rhythm, No JVD, No Murmur Capillary Refill: Less Than 3 Seconds Peripheral Pulses: 2+ Dorsalis Pedis (R), 2+ Left Dors-Pedis (L) Extremity: Normal Capillary Refill, No Calf Tenderness, No Pedal Edema Neurologic/Psychiatric: Alert, Oriented x3, Normal Mood/Affect; No Aphasia, No Facial Droop; Motor Weakness (right upper extremity set up worker strength 2/5, sensation intact, all other extremities 5/5); No Sensory Deficit Results Lab Laboratory Tests 01/20/21 21:57 01/21/21 03:07 01/21/21 08:44 01/21/21 14:44 01/22/21 00:45 01/22/21 03:00 Assessment/Plan Assessment/Plan Stroke like symptoms with right sided weakness -Pt did not receive TPA secondary timing -echo pending -MRI pending PT/OT Continue ASA, statin Newly diagnosed Type II DM D/C Insulin gtt -Start SSI and Metformin HTN -Monitored HIV+ Resume anti retrovirals when med rec done CD4 and viral load ordered DVT ppx: Lovenox Will transfer to 4th floor and D/C insulin gtt. I will sign off after pt transfers please call with any questions or concerns. STEPHANIE BERNSTEIN DO January 22, 2021 04:58
[2021-01-22] MEDS: inSUlin ASPART (NovoLOG) 1 UNIT/0.01 ML (CHARGE PER UNIT) SC SCH ×2 (06:22→11:05)
[2021-01-22] MEDS ORDERED: SODIUM PHOSPHATE INJ 30 MM in NS (IVPB) 250 ML INJ ONE (08:00)
--- NOTE | 2021-01-22 08:07 | Diagnostic Imaging Report ---
INDICATION: Dyspnea AP view of the chest is obtained with comparison made to study of 01/20/2021. Increased density cephalad to the aortic knob may be due to rotation. Otherwise heart size and pulmonary vascularity are within normal limits. There is no evidence of pneumothorax or consolidation. No definite pleural fluid is seen. IMPRESSION: No definite acute abnormalities identified however followup PA and lateral views of the chest would be useful to exclude density developing in the left superior mediastinum. Dictated by: Dictated on workstation # [id number]
[2021-01-22] MEDS: DOCUSATE SODIUM 100 MG (COLACE) CAP PO SCH (08:15)
[2021-01-22] MEDS: ASPIRIN E.C. 325 MG (ECOTRIN) TABLET PO SCH ×2 (08:15→09:42)
--- NOTE | 2021-01-22 08:26 | Speech Therapy Progress Note ---
Therapy Progress Note ST screened the patient at bedside. Patient's speech is within normal range as is swallow function on the current diet level. Patient's orders for evaluation are being discharged. PABLITO MUNOZ January 22, 2021 08:25
--- NOTE | 2021-01-22 10:26 | Physical Therapy Evaluation ---
PT Evaluation-General Medical Diagnosis Admission Date January 20, 2021 at 23:30 Medical Diagnosis: right side weakness/hyperglycemia Onset Date: January 20, 2021 Therapy Diagnosis Therapy Diagnosis: debility Precautions Precautions/Isolations: Standard Precautions Referral Physician: Jorge Reason for Referral: Evaluation/Treatment Medical History Pertinent Medical History: HTN Current History ER with right sided weakness and difficulty swallowing. Reviewed History: Yes Social History Home: Single Level Current Living Status: Other Family Prior Prior Level of Function SCALE: Activities may be completed with or without assistive devices. 3-Szjffzpoex-sizjess completes the activity by him/herself with no assistance from a helper. 5-Set-up or Clean-up Assistance-helper sets up or cleans up; patient completes activity. [place] assists only prior to or following the activity. 4-Supervision or Touching Assistance-helper provides verbal cues and/or touching/steadying and/or contact guard assistance as patient completes activity. Assistance may be provided throughout the activity or intermittently. 3-Partial/Moderate Assistance-helper does LESS THAN HALF the effort. [place] lifts, holds or supports trunk or limbs, but provides less than half the effort. 2-Substantial/Maximal Assistance-helper does MORE THAN HALF the effort. [place] lifts or holds trunk or limbs and provides more than half the effort. 9-Wzcomawnp-bvxpqi does ALL the effort. Patient does none of the effort to complete the activity. Or, the assistance of 2 or more helpers is required for the patient to complete the activity. If activity was not attempted, code reason: 7-Patient Refused. 9-Not Applicable-not attempted and the patient did not perform the activity before the current illness, exacerbation or injury. 10-Not Attempted due to Environmental Limitations-(lack of equipment, weather restraints, etc.). 88-Not Attempted due to Medical Conditions or Safety Concerns. Bed Mobility: 6 Transfers (B,C,W/C): 6 Gait: 6 Stairs: 6 Indoor Mobility (Ambulation): Independent Stairs: Independent Prior Devices Use: None PT Evaluation-Current Subjective Patient agrees to PT but demands RN remove IV from hand before participating with therapy. RN notified and educated patient on reason for IV when medications he was receiving, however, patient demanded IV be removed and stated he didn't need any of the medication he was receiving. Objective Patient Orientation: Normal For Age ROM/Strength ROM Lower Extremities bilateral LE WFL Strength Lower Extremities 5/5 grossly bilateral LE Integumentary/Posture Integumentary refer to nursing notes Bowel Incontinence: No Bladder Incontinence: No Posture kyphotic Neuromuscular (Tone, Coordination, Reflexes) grossly intact Sensory Vision: Functional Hearing: Functional Transfers Roll Left to Right (QC): 6 Lying to Sitting/Side of Bed(Q: 6 Sit to Stand (QC): 6 Chair/Zqs-ni-Qagmt Xfer(QC): 6 Gait Does the Patient Walk?: Yes Mode of Locomotion: Walk Anticipated Mode of Locomotion: Walk Walk 10 feet (QC): 6 Walk 50 ft with 2 Turns(QC): 6 Walk 150 ft (QC): 6 Distance: 500' Gait Assistive Device: None Comments/Gait Description safe and functional with no deviation Wheelchair Training Does the Pt Use a Wheelchair?: No Balance Sitting Static: Normal Sitting Dynamic: Normal Standing Static: Normal Standing Dynamic: Normal Assessment/Needs 65 y.o. male, is currently at independent [facility] with all gross motor skills and does not require skilled therapy intervention. Rehab Potential: Fair Post Rehab Potential-Barriers: compliance PT Plan Treatment/Plan Treatment Plan: Discontinue PT, goals met Treatment Duration: January 22, 2021 Frequency: 1 time per week Estimated Hrs Per Day: .25 hour per day Patient and/or Family Agrees t: Yes Time/GCodes Time In: 849 Time Out: 907 Total Billed Treatment Time: 18 Total Billed Treatment 1 visit EVModC 18 min TRENA DONATO PT January 22, 2021 10:26
[2021-01-22] MEDS ORDERED: ENOXAPARIN 40 MG/0.4 ML (LOVENOX) SYR SC SCH (11:00)
[2021-01-22] MEDS ORDERED: glipiZIDE 5 MG (GLUCOTROL) TAB PO NR (11:41)
[2021-01-22] MEDS ORDERED: ZOLP12.5 PO (11:46)
[2021-01-22] MEDS ORDERED: VILA20TA PO (11:46)
[2021-01-22] MEDS ORDERED: FURO20TA4 PO (11:46)
[2021-01-22] MEDS ORDERED: ALPR0.5T7 PO (11:46)
[2021-01-22] MEDS ORDERED: OLME-11 PO (11:46)
[2021-01-22] MEDS ORDERED: DOLU50TA PO (11:46)
[2021-01-22] MEDS ORDERED: DARU1TAB PO (11:46)
--- NOTE | 2021-01-22 13:16 | Diagnostic Imaging Report ---
CLINICAL INDICATION: Patient with right-sided weakness, possible stroke. EXAM: MRI of the brain performed without IV contrast. Sequences include axial DWI, ADC map, axial T2, axial FLAIR, axial T1, axial gradient echo, and sagittal T1. COMPARISON: CT angiogram of head/neck dated 01/20/2021. FINDINGS: There is no evidence of acute cerebral infarct, intracranial hemorrhage, or gross mass effect. The brain parenchymal volume appears appropriate for patient's age. There is a small focal area of chronic infarct involving the left cross radiata region. There are several focal areas of high T2 signal white matter changes involving both cerebral hemispheres, likely representing chronic small vessel ischemic disease. There is normal adamson-white matter distinction. There is no significant midline shift or herniation. The [place] vascular structures show no gross abnormality as visualized. The pituitary gland, sella, and suprasellar regions are unremarkable as visualized. There is no evidence of hydrocephalus. The basal cisterns are unremarkable. The skull, extracranial soft tissue, and orbits are unremarkable. There is khce-cn-lfkwkink mucosal thickening involving the right maxillary sinus and mild mucosal thickening involving the left maxillary sinus. Temporal bones show no significant abnormality. IMPRESSION: 1: There is no evidence of acute intracranial process. 2: There is chronic small vessel ischemic disease. 3: There is znby-ri-ypyckzwa paranasal sinus disease involving both maxillary sinuses (right side more than the left). Dictated by: Dictated on workstation # [id number]
--- NOTE | 2021-01-22 13:54 | Discharge Summary ---
Discharge Summary Hospital Course Was the Problem List Reviewed?: Yes Problems/Dx: (1) New onset type 2 diabetes mellitus Status: Acute (2) Acute right-sided weakness Status: Acute (3) Left against medical advice Status: Acute Hospital Course Date of Admission: January 20, 2021 at 23:30 Admission Diagnosis : Stroke-like symptoms Family Physician/Provider: Gail,Local Physician Date of Discharge: 01/22/21 Discharge Diagnosis: New onset type 2 diabetes mellitus, stroke like symptoms Hospital Course: Bao Gomez is a 65 year old male with PMH HIV who presented with right sided weakness and slurred speech. His symptoms started nearly a day prior to presentation and was not a candidate for tPA. His initial CT/CTA head imaging showed no acute abnormalities including no carotid stenosis. He was started on aspirin. He refused to take a statin because of reported intolerance in his family. He underwent an MRI which showed no abnormalities. He had an echo which showed concentric hypertrophy but no other abnormalities. He worked with PT and he was not noted to have any weakness. His course was complicated by new onset type 2 diabetes mellitus. He required an insulin drip initially due to hyperglycemia. He was recommended to begin Metformin, but he refused due to "risk of liver cancer". He was started on Glipizide and sliding scale insulin. He subsequently made the decision to leave the hospital AGAINST MEDICAL ADVICE. Labs and Pending Lab Test: Laboratory Tests 01/21/21 13:58: Glucometer 280H 01/21/21 14:44: Sodium Level 134L, Potassium Level 3.0L, Chloride Level 97L, Carbon Dioxide Level 26, Anion Gap 11, Blood Urea Nitrogen 11, Creatinine 1.40H, Estimat Glomerular Filtration Rate 51, BUN/Creatinine Ratio 8, Glucose Level 290H, Calcium Level 7.5L 01/21/21 15:01: Glucometer 295H 01/21/21 16:05: Glucometer 244H 01/21/21 17:07: Glucometer 224H 01/21/21 18:00: Glucometer 221H 01/21/21 18:52: Glucometer 174H 01/21/21 20:09: Glucometer 204H 01/21/21 21:15: Glucometer 194H 01/21/21 21:48: Glucometer 175H 01/21/21 22:50: Glucometer 169H 01/21/21 23:57: Glucometer 164H 01/22/21 00:45: Sodium Level 136, Potassium Level 4.0, Chloride Level 105, Carbon Dioxide Level 20L, Anion Gap 11, Blood Urea Nitrogen 11, Creatinine 1.22, Estimat Glomerular Filtration Rate 60, BUN/Creatinine Ratio 9, Glucose Level 119H, Calcium Level 8.0L 01/22/21 01:15: Glucometer 107 01/22/21 02:17: Glucometer 113H 01/22/21 03:00: Sodium Level 135, Potassium Level 4.3, Chloride Level 106, Carbon Dioxide Level 20L, Anion Gap 9, Blood Urea Nitrogen 10, Creatinine 1.10, Estimat Glomerular Filtration Rate > 60, BUN/Creatinine Ratio 9, Glucose Level 101, Calcium Level 7.9L, White Blood Count 6.5, Red Blood Count 4.74, Hemoglobin 14.1, Hematocrit 41, Mean Corpuscular Volume 86, Mean Corpuscular Hemoglobin 30, Mean Corpuscular Hemoglobin Concent 35, Red Cell Distribution Width 12.2, Platelet Count 182, Mean Platelet Volume 11.7, Immature Granulocyte % (Auto) 1, Neutrophils (%) (Auto) 50, Lymphocytes (%) (Auto) 38, Monocytes (%) (Auto) 6, Eosinophils (%) (Auto) 5, Basophils (%) (Auto) 1, Neutrophils # (Auto) 3.2, Lymphocytes # (Auto) 2.4, Monocytes # (Auto) 0.4, Eosinophils # (Auto) 0.3, Basophils # (Auto) 0.1, Immature Granulocyte # (Auto) 0.0, Mean Blood Glucose [Pending], Hemoglobin A1c [Pending], Phosphorus Level 1.5L, Magnesium Level 1.8 01/22/21 03:27: Glucometer 109 01/22/21 04:24: Glucometer 106 01/22/21 06:10: Glucometer 133H 01/22/21 10:04: Glucometer 214H Microbiology 01/21/21 MRSA Screen - Final, Complete MRSA not isolated Home Meds Active Reported Viibryd (Vilazodone Hydrochloride) 20 Mg Tablet 20 Mg PO DAILY Ambien Cr (Zolpidem Tartrate) 12.5 Mg Tab.mphase 12.5 Mg PO HS 7 Days Alprazolam 0.5 Mg Tablet 0.5 Mg PO BID PRN Furosemide 20 Mg Tablet 20 Mg PO DAILY PRN Olmesartan-Hctz 40-25 mg Tab (Olmesartan/Hydrochlorothiazide) 1 Each Tablet 1 Each PO DAILY Tivicay (Dolutegravir Sodium) 50 Mg Tablet 50 Mg PO DAILY Prezcobix 800 mg-150 mg Tablet (Darunavir/Cobicistat) 1 Each Tablet 1 Each PO DAILY Assessment/Pt Instructions Patient left AGAINST MEDICAL ADVICE Discharge Planning: <30 minutes discharge planning Discharge Instructions Discharge Diet: ADA Diet Activity as Tolerated: Yes Discharge Physical Examination Vital Signs Vital Signs Date Time Temp Pulse Resp B/P (MAP) Pulse Ox O2 Delivery O2 Flow Rate FiO2 01/22/21 11:27 35.4 01/22/21 08:00 97 Room Air 01/22/21 08:00 83 9 127/83 (98) General Appearance: No Apparent Distress, Other (overweight, argumentative, angry, agitated) HEENT: PERRL/EOMI, Pharynx Normal Respiratory: Lungs Clear, Normal Breath Sounds, No Respiratory Distress Cardiovascular: Regular Rate, Rhythm, No Edema, No Murmur Gastrointestinal: Normal Bowel Sounds, Non Tender, Soft Extremity: Normal Inspection, Non Tender, No Pedal Edema Skin: Normal Color, Warm/Dry Neurologic/Psychiatric: Alert, Oriented x3, No Motor/Sensory Deficits Allergies: Coded Allergies: No Known Drug Allergies (Unverified , 01/03/21) Discharge Summary Date of Admission January 20, 2021 at 23:30 Date of Discharge Discharge Date: January 22, 2021 Discharge Time: 13:54 Admission Diagnosis Stroke like symptoms Discharge Diagnosis (1) Acute right-sided weakness Status: Acute (2) New onset type 2 diabetes mellitus Status: Acute (3) Left against medical advice Status: Acute Clinical Quality Measures Stroke: Date of last known well: January 20, 2021 Time of last known well: 23:00 Symptoms onset unknown: Yes GALO LANDAVERDE MD January 22, 2021 13:53
[2021-01-22] MEDS ORDERED: ROSUVASTATIN 20 MG (CRESTOR) TABLET PO SCH (21:00)
[2021-01-23] MEDS ORDERED: glipiZIDE 5 MG (GLUCOTROL) TAB PO SCH (06:30)
[2021-01-23] MEDS ORDERED: metFORMIN 500 MG (GLUCOPHAGE) TAB PO SCH (07:00)
== END 2021-01-22 13:35 | disposition left against medical advice (07) ==
LOC: EDUNIT# 21:48 → ER 21:52 → ICU 23:30
PROVIDERS: ADMIT Family Medicine; ATTEND Family Medicine
DX: E11.65 Type 2 diabetes mellitus with hyperglycemia (principal); R53.1 Weakness; I10 Essential (primary) hypertension; Z21 Asymptomatic human immunodeficiency virus [HIV] infection status; Z79.4 Long term (current) use of insulin; Z79.899 Other long term (current) drug therapy; Z82.3 Family history of stroke
CPT/HCPCS: 36415; 70496; 70498; 70551; 71045; 80048; 80053; 80061; 81000; 82947; 83036; 83735; 84100; 84484; 85025; 85379; 85610; 85730; 86361; 87081; 87536; 93005; 93041; 93306; 94664; G0378